=== PATIENT | male | born 1975 | race Two or more races ===

== ENCOUNTER 2019-04-27 11:18 | Emergency (ER) | payer OTHER ==
[~2019-04-27] VITALS: Ht 180.3 cm; Wt 83.9 kg
--- NOTE | 2019-04-27 12:10 | NUR ---
patient came in to the ER c/o left ear plugged since this morning. on rom air, breathing evenly and unlabored. denies any pain. Will continue to monitor accordingly.
--- NOTE | 2019-04-27 12:37 | NUR ---
xavier franco at bedside for ear irrigation.
--- NOTE | 2019-04-27 12:56 | NUR ---
Patient discharged to home in stable condition. Written and verbal after care instructions given. Patient verbalizes understanding of instruction.
[2019-04-27 12:57] VITALS: BP 145/97
== END 2019-04-27 12:58 | disposition home or self-care (01) ==
LOC: ER 11:22
DX: H61.22 Impacted cerumen, left ear (principal)